=== PATIENT | male | born 1995 | race Caucasian/White ===

== ENCOUNTER 2021-06-04 11:49 | Emergency (ER) | payer OTHER ==
[~2021-06-04] VITALS: Ht 182.9 cm; Wt 65.8 kg
[~2021-06-04 11:49] MED LIST: AMOXICILLIN 50500 M1 PO
[2021-06-04 14:24] VITALS: BP 114/73
== END 2021-06-04 14:24 | disposition left against medical advice (07) ==
LOC: M.ERS 11:49
DX: R11.10 Vomiting, unspecified (principal); Z53.21 Procedure and treatment not carried out due to patient leaving prior to being seen by health care provider